=== PATIENT | female | born 1950 | race Caucasian/White ===

== ENCOUNTER 2016-09-09 00:33 | Observation (INO) | payer MEDICARE ==
[2016-09-09] MEDS ORDERED: Zofran 4 MG/2 ML VIAL IV ONE (00:58)
[2016-09-09] MEDS ORDERED: MORPHINE SULFATE 4 MG INJ IV ONE (00:58)
[2016-09-09] MEDS ORDERED: Sodium Chloride 0.9% 1000 ML 1,000 ML IV STA (00:58)
--- NOTE | 2016-09-09 01:04 | ERPHSYRPT ---
- History of Present Illness Time Seen by Provider: 09/09/16 01:00 Historian: patient Exam Limitations: no limitations Patient Subjective Stated Complaint: PT STS WAS JUST DISCHARGED HOME SATURDAY NIGHT, STS HERE FOR ABD PAIN TONIGHT THAT HAS BEEN ONGOING FOR WEEKS. STS THAT IT GETS EXCRUCIATING AT TIMES, RATES PAIN 7/10. DENIES VOMITING. STS NORMAL BM X 4 09/08/16. PT STS PAIN IS IN LOWER ABD. Triage Nursing Assessment: PT ALERT, ORIENTED, ANSWERS ALL QUESTIONS APPROPRIATELY. SKIN P/W/D, RESPS NON-LABORED. LUNGS CTA BILAT NON-LABORED, SPO2 95% ROOM AIR. PT ABD SOFT, TENDER LOWER QUADRANTS BILAT. + BOWEL SOUNDS NOTED ALL QUADRANTS. PITTING EDEMA NOTED TO BLE. Physician History: This is a 65-year-old white female with history of diabetes, coronary artery disease, asthma, hyperlipidemia, ulcers, GERD. Patient arrives with complaint of lower abdominal pain and nausea symptoms which she states has been going on for several months. Patient apparently was seen and treated for the same released one week ago today. She states that she is having pain in the lower suprapubic region and radiates up her abdomen. She has nausea no vomiting no melena no hematochezia no urinary symptoms. Patient does state that she was released a week ago with pain medication but she has taken it all. Past medical history includes migraines, cataracts, diabetes, asthma, coronary artery disease, hyperlipidemia, myocardial infarction, GERD, ulcers, arthritis, fibromyalgia, depression Past surgical history includes cardiac catheter, cardiac stents, appendectomy, hysterectomy, joint replacement, Timing/Duration: other (pain chronic for several weeks worse today) Quality: aching, cramping Abdominal Pain Onset Location: suprapubic Pain Radiation: other (radiates up entire abdomen) Severity of Pain-Max: moderate Severity of Pain-Current: moderate Modifying Factors: Improves With: nothing Associated Symptoms: nausea, No back, No chest pain, No diaphoresis, No diarrhea , No fever/chills, No fatigue, No headache, No heartburn, No loss of appetite, No neck pain, No rash, No shortness of breath, No syncope Previous symptoms: same symptoms as today, recent hospitalization Allergies/Adverse Reactions: aspirin Allergy (Verified 08/26/16 18:00) Home Medications: Ranitidine HCl [Zantac] 150 mg PO BID 03/28/12 [History] Alprazolam [Xanax] 1 mg PO QIDPRN PRN 05/19/12 [History] Ibuprofen [Advil] 200 mg PO Q6-8HPRN PRN 09/30/12 [History] Lisinopril 20 mg PO DAILY 09/30/12 [History] Magnesium Oxide 400 mg [Mag-Ox 400] 400 mg PO DAILY 09/30/12 [History] Furosemide 20 mg [Lasix 20 mg] 20 mg PO DAILY 02/08/16 [History] Potassium Chloride 20 Meq Tab [Potassium Chloride 20 MEQ TABLET] 20 meq PO DAILY 02/08/16 [History] Diphenoxylate HCl/Atropine [Lomotil 2.5-0.025 mg Tablet] 1 each PO UD 08/26/16 [ History] Esomeprazole Magnesium [Nexium] 40 mg PO DAILY 08/26/16 [History] Meclizine HCl 25 mg [Antivert 25 mg] 25 mg PO Q8H PRN PRN 08/26/16 [ History] Multivitamin W-Minerals/Lutein [Centrum Silver Tablet] 1 each PO DAILY 08/26/16 [History] Sertraline HCl 100 mg [Zoloft 100 MG] 100 mg PO DAILY 08/26/16 [History] Hx Tetanus, Diphtheria Vaccination/Date Given: Yes Hx Influenza Vaccination/Date Given: Yes Hx Pneumococcal Vaccination/Date Given: No - Review of Systems Constitutional: No Fever, No Chills Eyes: No Symptoms Ears, Nose, & Throat: No Symptoms Respiratory: No Cough, No Dyspnea Cardiac: No Chest Pain, No Edema, No Syncope Abdominal/Gastrointestinal: Abdominal Pain, Nausea, No Vomiting, No Diarrhea, No Constipation, No Hematemesis, No Hematochezia, No Melena, No Dysphagia, No Appetite Changes Genitourinary Symptoms: No Dysuria Musculoskeletal: No Back Pain, No Neck Pain Skin: No Rash Neurological: No Dizziness, No Focal Weakness, No Sensory Changes Psychological: No Symptoms Endocrine: No Symptoms All Other Systems: Reviewed and Negative - Past Medical History Pertinent Past Medical History: Yes Neurological History: Migraines ENT History: Cataracts Cardiac History: Coronary Artery Disease, High Cholesterol, Myocardial Infarction (MS) Respiratory History: Asthma Endocrine Medical History: Diabetes Type II Musculoskeletal History: Arthritis, Fibromyalgia GI Medical History: GERD, Ulcer History: No Pertinent History Psycho-Social History: Anxiety, Depression Female Reproductive Disorders: No Pertinent History - Past Surgical History Past Surgical History: Yes Neuro Surgical History: No Pertinent History Cardiac: Cardiac Catheterization, Cardiac Stent Respiratory: No Pertinent History Gastrointestinal: Appendectomy Genitourinary: No Pertinent History Musculoskeletal: Joint Replacement Female Surgical History: Hysterectomy Other Surgical History: states heart attack in 2011,states two stents placed. - Social History Smoking Status: Former smoker How long have you smoked: 44 Exposure to second hand smoke: Yes Drug Use: none Patient Lives Alone: Yes - Female History Hx Now: No - Nursing Vital Signs Nursing Vital Signs: Initial Vital Signs Temperature 98.2 F Temperature Source Oral Pulse Rate 80 Respiratory Rate 16 Blood Pressure 130/86 Pain Intensity 5 - Physical Exam General Appearance: other (well-developed obese white femaledoes not appear to be in acute distress) Eye Exam: PERRL/EOMI, eyes nml inspection Ears, Nose, Throat Exam: normal ENT inspection, pharynx normal, moist mucous membranes Neck Exam: normal inspection, non-tender, supple, full range of motion Respiratory Exam: normal breath sounds, lungs clear, No respiratory distress Cardiovascular Exam: regular rate/rhythm, normal heart sounds Gastrointestinal/Abdomen Exam: soft, normal bowel sounds, tenderness ( suprapubic tenderness), No distention, No mass, No guarding, No ecchymosis, No pulsatile mass, No rebound, No hernia, No hepatomegaly, No organomegaly Back Exam: normal inspection, normal range of motion, No CVA tenderness, No vertebral tenderness Extremity Exam: normal inspection, normal range of motion, pelvis stable Neurologic Exam: alert, oriented x 3, cooperative, normal mood/affect, nml cerebellar function, sensation nml, No motor deficits Skin Exam: normal color, warm, dry SpO2 Interpretation: normal (95%) SpO2: 95 Oxygen Delivery: Room Air - Course Nursing assessment & vital signs reviewed: Yes EKG Interpreted by Me: RATE (82 bpm), Sinus Rhythm, Q-wave (Q waves inferior leads), Other (EKG, sinus rhythm, 82 bpm, axisSi/QIII pattern, Q waves inferior leads, no acute ST or T wave changes, no change as compared to October 20, 2012 ) Ordered Tests: Active Orders 24 hr Category Date Time Status Accucheck STAT Care 09/09/16 00:59 Active EKG-ER Only STAT Care 09/09/16 01:11 Active IV Insertion STAT Care 09/09/16 00:58 Active AMYLASE Stat Lab 09/09/16 01:08 Completed CBC W DIFF Stat Lab 09/09/16 01:08 Completed CMP Stat Lab 09/09/16 01:08 Completed LIPASE Stat Lab 09/09/16 01:08 Completed Lactic Acid Urgent Lab 09/09/16 01:10 Completed TROPONIN Stat Lab 09/09/16 01:14 Completed UA W/ MICROSCOPIC Stat Lab 09/09/16 01:50 Completed Medication Summary Discontinued Medications Generic Name Dose Route Start Last Admin Trade Name Freq PRN Reason Stop Dose Admin Sodium Chloride 1,000 mls @ 999 mls/hr 09/09/16 00:58 09/09/16 01:40 Sodium Chloride 0.9% 1000 Ml IV 09/09/16 01:58 999 mls/hr .Q1H1M STA Administration Sodium Chloride Confirm 09/09/16 01:17 Sodium Chloride 0.9% 1000 Ml Administered 09/09/16 01:18 Dose 1,000 mls @ ud .ROUTE .STK-MED ONE Morphine Sulfate 4 mg 09/09/16 00:58 09/09/16 01:40 Morphine Sulfate 4 Mg Inj IV 09/09/16 00:59 4 mg STAT ONE Administration Morphine Sulfate Confirm 09/09/16 01:17 Morphine Sulfate 4 Mg Inj Administered 09/09/16 01:18 Dose 4 mg .ROUTE .STK-MED ONE Ondansetron HCl 4 mg 09/09/16 00:58 09/09/16 01:40 Zofran 4 Mg/2 Ml Vial IV 09/09/16 00:59 4 mg STAT ONE Administration Ondansetron HCl Confirm 09/09/16 01:16 Zofran 4 Mg/2 Ml Vial Administered 09/09/16 01:17 Dose 4 mg .ROUTE .STK-MED ONE Lab/Rad Data: Laboratory Result Diagrams 09/09/16 01:08 09/09/16 01:08 Laboratory Results 09/09/16 09/09/16 09/09/16 Range/Units 01:50 01:14 01:10 WBC (4.0-10.5) K/mm3 RBC (4.1-5.4) M/mm3 Hgb (12.0-16.0) gm/dl Hct (35-47) % MCV (78-100) fl MCH (26-32) pg MCHC (32-36) g/dl RDW (11.5-14.0) % Plt Count (150-450) K/mm3 MPV (6-9.5) fl Gran % (36.0-66.0) % Lymphocytes % (24.0-44.0) % Monocytes % (0.0-12.0) % Eosinophils % (0.00-5.0) % Basophils % (0.0-0.4) % Basophils # (0-0.4) Sodium (136-145) mEq/L Potassium (3.5-5.1) mEq/L Chloride (98-107) mEq/L Carbon Dioxide (21-32) mEq/L Anion Gap (5-15) MEQ/L BUN (9-20) mg/dL Creatinine (0.55-1.30) mg/dl Estimated GFR ML/MIN Glucose (70-110) MG/DL Lactic Acid 1.5 (0.4-2.0) Calcium (8.5-10.1) mg/dL Total Bilirubin (0.2-1.0) mg/dL AST (15-37) U/L ALT (12-78) U/L Alkaline Phosphatase (46-116) U/L Troponin I < 0.017 (0.000-0.056) ng/ml Serum Total Protein (6.4-8.2) gm/dL Albumin (3.4-5.0) g/dL Amylase (25-115) U/L Lipase (73-393) U/L Ur Collection Type CLEAN CATCH Urine Color YELLOW (YELLOW) Urine Appearance CLEAR (CLEAR) Urine pH 8.5 (5-6) Ur Specific [place] 1.020 (1.005-1.025) Urine Protein NEGATIVE (Negative) Urine Glucose (UA) NEGATIVE (NEGATIVE) mg/dL Urine Ketones NEGATIVE (NEGATIVE) Urine Nitrite NEGATIVE (NEGATIVE) Urine Bilirubin NEGATIVE (NEGATIVE) Urine Urobilinogen 0.2 (0-1) mg/dL Urine WBC (Auto) SMALL (NEGATIVE) Urine RBC (Auto) NEGATIVE (0-5) Marquez/ul Urine Microscopic RBC 2-5 (0-2) /HPF Urine Microscopic WBC 2-5 (0-5) /HPF Ur Epithelial Cells MODERATE (FEW) /HPF Urine Bacteria MODERATE (NEGATIVE) /HPF Specimen Received 09/09/16 0150 09/09/16 09/09/16 Range/Units 01:08 01:08 WBC 11.7 H (4.0-10.5) K/mm3 RBC 4.35 (4.1-5.4) M/mm3 Hgb 9.9 L (12.0-16.0) gm/dl Hct 33.8 L (35-47) % MCV 77.7 L (78-100) fl MCH 22.7 L (26-32) pg MCHC 29.3 L (32-36) g/dl RDW 20.9 H (11.5-14.0) % Plt Count 215 (150-450) K/mm3 MPV 11.8 H (6-9.5) fl Gran % 70.5 H (36.0-66.0) % Lymphocytes % 17.6 L (24.0-44.0) % Monocytes % 8.3 (0.0-12.0) % Eosinophils % 3.3 (0.00-5.0) % Basophils % 0.3 (0.0-0.4) % Basophils # 0.04 (0-0.4) Sodium 143 (136-145) mEq/L Potassium 3.8 (3.5-5.1) mEq/L Chloride 108 H (98-107) mEq/L Carbon Dioxide 31.5 (21-32) mEq/L Anion Gap 7.7 (5-15) MEQ/L BUN 7 L (9-20) mg/dL Creatinine 0.77 (0.55-1.30) mg/dl Estimated GFR > 60 ML/MIN Glucose 98 (70-110) MG/DL Lactic Acid (0.4-2.0) Calcium 8.2 L (8.5-10.1) mg/dL Total Bilirubin 0.2 (0.2-1.0) mg/dL AST 14 L (15-37) U/L ALT 13 (12-78) U/L Alkaline Phosphatase 111 (46-116) U/L Troponin I (0.000-0.056) ng/ml Serum Total Protein 6.4 (6.4-8.2) gm/dL Albumin 3.4 (3.4-5.0) g/dL Amylase 55 (25-115) U/L Lipase 133 (73-393) U/L Ur Collection Type Urine Color (YELLOW) Urine Appearance (CLEAR) Urine pH (5-6) Ur Specific [place] (1.005-1.025) Urine Protein (Negative) Urine Glucose (UA) (NEGATIVE) mg/dL Urine Ketones (NEGATIVE) Urine Nitrite (NEGATIVE) Urine Bilirubin (NEGATIVE) Urine Urobilinogen (0-1) mg/dL Urine WBC (Auto) (NEGATIVE) Urine RBC (Auto) (0-5) Marquez/ul Urine Microscopic RBC (0-2) /HPF Urine Microscopic WBC (0-5) /HPF Ur Epithelial Cells (FEW) /HPF Urine Bacteria (NEGATIVE) /HPF Specimen Received - Progress Progress: improved Progress Note: 09/09/16 02:17 This is a 65-year-old white female with history of diabetes coronary artery disease hyperlipidemia GERD and ulcer she arrives with complaints of continuing abdominal pain which has been going on for several weeks. Patient was admitted secondary to this she had a CT of her abdomen which showed a abnormally distended gallbladder without gallstones mild biliary tree prominence and tiny perihepatic fluid with a rule out cholecystitis being questioned there was also some small all fluid distended loops with synchronous fluid leveling favoring ileus. This was done on August 30, 2016. Patient states she continues to have pain in her abdomen she states she is nauseous she has no vomiting no diarrhea. Patient's white count is 11.7 hemoglobin 9.99 hematocrit 33.8 chemistry essentially normal amylase and lipase are normal EKG there are some old Q waves mother does not appear to be acute changes on her EKG troponin was within normal limits at less than 0.017 urine 2-5 white cells to 5 red cells negative nitrites. Patient with of tenderness on examination in the suprapubic region bowel sounds are positive. I have given patient morphine 4 mg IV and Zofran 4 mg IV patient now is somnolent and sleeps however if she is awoken she continues to complain that her abdomen hurts in the lower suprapubic region. I have discussed case with Dr. Carrillo will place patient on observation diagnosis abdominal pain will provide IV fluids and morphine with Zofran. - Departure Time of Disposition: 02:21 Departure Disposition: Observation Clinical Impression: Nausea Abdominal pain Qualifiers: Abdominal location: unspecified location Qualified Code(s): R10.9 - Unspecified abdominal pain Condition: Fair Critical Care Time: No
[2016-09-09 01:11] LABS: BASOPHIL % 0.3 % (0.0-0.4); Eosinophil % 3.3 % (0.00-5.0); Granulocytes % 70.5 % (36.0-66.0); Lymphocytes % 17.6 % (24.0-44.0); Mean Cell Volume 77.7 fl (78-100); Mean Platelet Volume 11.8 fl (6-9.5); Monocytes % 8.3 % (0.0-12.0); Platelet Count 215 K/mm3 (150-450); Red Blood Count 4.35 M/mm3 (4.1-5.4); Red Cell Distribution Width 20.9 % (11.5-14.0); White Blood Count 11.7 K/mm3 (4.0-10.5)
[2016-09-09 01:16] LABS: Mean Corpuscular Hemoglobin 22.7 pg (26-32)
[2016-09-09] MEDS ORDERED: Zofran 4 MG/2 ML VIAL ONE (01:16)
[2016-09-09] MEDS ORDERED: Sodium Chloride 0.9% 1000 ML 1,000 ML ONE (01:17)
[2016-09-09] MEDS ORDERED: MORPHINE SULFATE 4 MG INJ ONE (01:17)
[2016-09-09 01:42] LABS: ALBUMIN 3.4 g/dL (3.4-5.0); ALKALINE PHOSPHATASE 111 U/L (46-116); ANION GAP 7.7 MEQ/L (5-15); BILIRUBIN,TOTAL 0.2 mg/dL (0.2-1.0); BLOOD UREA NITROGEN 7 mg/dL (9-20); CHLORIDE 108 mEq/L (98-107); Carbon Dioxide 31.5 mEq/L (21-32); Glucose 98 MG/DL (70-110); LIPASE 133 U/L (73-393); Potassium 3.8 mEq/L (3.5-5.1); SGOT/AST 14 U/L (15-37); SGPT/ALT 13 U/L (12-78); SODIUM 143 mEq/L (136-145); Total Protein 6.4 gm/dL (6.4-8.2)
[2016-09-09 02:02] LABS: COMPLETE URINE MICROSCOPIC? YES; Collection Type CLEAN CATCH; Ph 8.5 (5-6)
[2016-09-09 02:03] LABS: Bacteria MODERATE /HPF (NEGATIVE); Epithelial Cells MODERATE /HPF (FEW)
[2016-09-09] MEDS ORDERED: MORPHINE SULFATE 4 MG INJ IV PRN (02:51)
[2016-09-09] MEDS ORDERED: NovoLOG Insulin SQ PRN (02:51)
[2016-09-09] MEDS ORDERED: Zofran 4 MG/2 ML VIAL IV PRN (02:51)
[2016-09-09] MEDS: Sodium Chloride 0.9% 1000 ML 1,000 ML IV SCH ×2 (04:32→14:06)
[2016-09-09 06:34] LABS: BASOPHIL % 0.4 % (0.0-0.4); Eosinophil % 4.6 % (0.00-5.0); Granulocytes % 61.4 % (36.0-66.0); Mean Cell Volume 78.5 fl (78-100); Mean Platelet Volume 11.6 fl (6-9.5); Monocytes % 8.6 % (0.0-12.0); Platelet Count 180 K/mm3 (150-450); Red Blood Count 3.95 M/mm3 (4.1-5.4); Red Cell Distribution Width 20.9 % (11.5-14.0); White Blood Count 9.5 K/mm3 (4.0-10.5)
[2016-09-09 06:38] LABS: Mean Corpuscular Hemoglobin 22.7 pg (26-32)
[2016-09-09 06:58] LABS: ALBUMIN 2.7 g/dL (3.4-5.0); ALKALINE PHOSPHATASE 90 U/L (46-116); ANION GAP 10.4 MEQ/L (5-15); BILIRUBIN,TOTAL 0.1 mg/dL (0.2-1.0); BLOOD UREA NITROGEN 5 mg/dL (9-20); CHLORIDE 112 mEq/L (98-107); Carbon Dioxide 28.5 mEq/L (21-32); Glucose 127 MG/DL (70-110); Potassium 3.5 mEq/L (3.5-5.1); SGOT/AST 10 U/L (15-37); SGPT/ALT 10 U/L (12-78); SODIUM 147 mEq/L (136-145); Total Protein 5.6 gm/dL (6.4-8.2)
[2016-09-09] MEDS ORDERED: ANTIVERT 25 MG PO PRN (11:08)
[2016-09-09] MEDS ORDERED: Lomotil PO PRN (11:15)
[2016-09-09] MEDS: Norco 10/325 MG Tablet PO PRN (13:07)
[2016-09-09] MEDS: ZOLOFT 50 MG TABLET PO SCH (13:07)
[2016-09-09] MEDS: Pepcid 20 MG PO SCH ×2 (13:07→22:17)
[2016-09-09] MEDS: LASIX 20 MG PO SCH (13:08)
[2016-09-09] MEDS: MAG-OX 400 PO SCH (13:08)
[2016-09-09] MEDS: Klor Con 10 MEQ PO SCH (13:08)
[2016-09-09] MEDS: THERAGRAN MULTIVITAMIN PO SCH (13:08)
[2016-09-09] MEDS: Zestril 20 MG PO SCH (13:08)
[2016-09-09] MEDS: Protonix 40MG Tablet PO SCH (13:08)
[2016-09-09] MEDS: NORVASC 5 MG PO SCH (13:08)
[2016-09-09] MEDS ORDERED: NON-FORMULARY ITEM (Ranitidine Hcl [Zantac] 150 MG) PO SCH (22:00)
[2016-09-09] MEDS: MORPHINE SULFATE 4 MG INJ IV PRN (22:18)
[2016-09-10] MEDS: Sodium Chloride 0.9% 1000 ML 1,000 ML IV SCH ×2 (00:41→10:15)
[2016-09-10] MEDS: MORPHINE SULFATE 4 MG INJ IV PRN ×2 (02:19→06:31)
--- NOTE | 2016-09-10 07:51 | PCM.NOTE ---
Date and Time: 09/10/16 0746 Subjective Assessment: Pt feeling hungry this morning. Abd pain is 4/10 but she had morphine 1.5 hrs ago. C/o epigastric and lower abdominal pain. Objective Exam General Appearance: no apparent distress Neurologic Exam: alert, cooperative Skin Exam: normal color, warm, dry Respiratory Exam: normal breath sounds, lungs clear, No crackles/rales, No rhonchi, No wheezing Cardiovascular Exam: regular rate/rhythm, normal heart sounds Gastrointestinal/Abdomen Exam: soft, tenderness (RUQ and epigastrum ttp), No guarding, No rebound Extremity Exam: swelling (1+ LE edema bilat) OBJECTIVE DATA Vital Signs: Vital Signs - 24 hr Temp Pulse Resp BP Pulse Ox 09/10/16 07:04 97.8 F 79 20 153/65 95 09/10/16 04:00 98.4 F 84 21 143/72 94 L 09/10/16 00:00 98.5 F 77 20 126/69 96 09/09/16 20:00 98.1 F 73 20 119/66 97 09/09/16 16:12 98.1 F 74 18 128/63 95 09/09/16 11:14 97.9 F 76 20 128/66 96 Pain Assessment - Last Documented Pain Intensity 8 Pain Scale Used 0-10 Pain Scale Intake and Output: Intake & Output 09/07/16 09/08/16 09/09/16 09/10/16 11:59 11:59 11:59 11:59 Intake Total 450 4843 Output Total 700 4550 Balance -250 293 Weight 113.171 kg Lab Results: Accuchecks Date 09/09/16 Date 09/09/16 Date 09/09/16 Time 22:00 Time 16:30 Time 11:30 Accucheck Value: 95 Accucheck Value: 142 Accucheck Value: 171 Lab Results-Last 24 Hours 09/09/16 Range/Units 05:40 Hemoglobin A1c 6.0 (4.5-6.2) Multi-Disciplinary Progress Notes: Multi-Disciplinary Progress Notes 09/09/16 08:27 Case Management Note by Paty Melara DISCHARGE PLAN REVIEWED. REPORTS THAT SHE PROVIDES SELF CARE, AND IS INDEPENDENT WITH ALL ADL'S. DECLINED NEED FOR C SERVICES ON DISCHARGE AT VISIT IN AUGUST 2016, ONE WEEK AGO. WILL REVISIT THAT ON SATURDAY. PLANS TO RETURN HOME TO PRE EPISODIC LEVEL OF [place]. 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 PT DOES HAVE A WALKER AT HOME. WILL CONTINUE TO MONITOR FOR ALL D/C NEEDS. Initialized on 09/09/16 08:27 - END OF NOTE Assessment/Plan (1) Abdominal pain Current Visit: Yes Status: Acute Qualifiers: Abdominal location: unspecified location Qualified Code(s): R10.9 - Unspecified abdominal pain Assessment & Plan: Surgery has been consulted, thank you. HAs had distended gallbladder during most recent hospital stay; no cholelithiasis. Will keep NPO for now pending surgery consult. Code(s): R10.9 - UNSPECIFIED ABDOMINAL PAIN (2) Edema Current Visit: Yes Status: Acute Qualifiers: Edema type: localized Qualified Code(s): R60.0 - Localized edema Assessment & Plan: LE bilat - check BNP in a.m. Code(s): R60.9 - EDEMA, UNSPECIFIED (3) DVT prophylaxis Current Visit: Yes Status: Acute Assessment & Plan: Will start lovenox 40mg SQ daily if pt is not going to surgery today. Await surgery consult. Code(s): [id number] -
[2016-09-10] MEDS ORDERED: MORPHINE SULFATE 2 MG INJ IV PRN (07:52)
[2016-09-10] MEDS ORDERED: Ativan 2 MG/1 ML VIAL IV PRN (07:58)
--- NOTE | 2016-09-10 07:59 | HP ---
CHIEF COMPLAINT: Abdominal pain. HISTORY OF PRESENT ILLNESS: The patient is a 65 year-old white female patient who had been hospitalized and released from our facility approximately five days ago. She represented to the emergency room complaining of excruciating pain in her right upper quadrant. She reports that she had several bowel movements that were normal otherwise yesterday. The patient has a history of diabetes mellitus, coronary artery disease, asthma, hyperlipidemia, gastroesophageal reflux disease, depression, fibromyalgia. MEDICATIONS: Her home medication list includes Zantac 150 mg b.i.d., Alprazolam 1 mg four times a day PRN anxiety, Advil 200 mg every six to eight hours PRN for pain, lisinopril 20 mg a day, magnesium tablets, Furosemide 20 mg daily, potassium 20 mEq daily, Lomotil, Nexium 40 mg a day, Antivert 25 mg every 8 hours PRN, Zoloft 100 mg b.i.d. ALLERGIES: ASPIRIN. PHYSICAL EXAMINATION: Revealed a disheveled appearing white female patient who is somewhat lethargic and with garbled speech although she does awaken and answer questions but has difficulty remembering what all studies that she has had done, even having trouble remembering her physician's name. The patient's vital signs most recently showed a temperature 97.7F, pulse 80, respiratory rate 20, blood pressure 136/74. O2 saturation 96%. HEENT: Normocephalic, atraumatic. Pupils equal round reactive to light. Extraocular movements intact. Oropharynx is pink and moist. NECK: Supple without lymphadenopathy, thyromegaly or JVD. CHEST: Clear to auscultation with good air movement bilaterally. HEART: Regular rate and rhythm without murmurs, rubs or gallops. ABDOMEN: Minimally tender. No guarding or rebound was present. Bowel sounds are normal. EXTREMITIES: Without cyanosis, clubbing or edema. NEUROLOGIC: The patient is alert and oriented x3. LAB DATA AND TESTS: Apparently the patient had a HIDA scan in the past which showed ejection fraction of 8%. There was some discussion about taking the patient to surgery but due to her code status they decided not to do that on her most recent hospitalization. The patient's lab studies otherwise here show glucose 98, BUN 7, creatinine 0.77. Electrolytes were normal. Liver enzymes were normal. Amylase and lipase were normal. Troponins less than 0/017. Lactic acid 1.5. White blood cell count slightly elevated at 11,700, hemoglobin 9.9, PLT count 215,000 minimum left shift was noted. UA specific gravity 1.020, white blood cells 2 to 5, red blood cells 2 to 5 and negative nitrite. The patient's CT scan showed abnormally distended gallbladder without gallstones now with biliary tree prominence and tiny parahepatic fluid; rule out acalculus cholecystitis. ASSESSMENT: A patient with gallbladder disease admitted to the hospital for IV fluids and the patient had surgical consultation in the past but apparently refused to do any surgery given her code status. The patient has been admitted to the hospital for IV fluids and pain medications in the meantime. She will be continued on her home medications except for increasing the dosage of Alprazolam, reducing the dosage of morphine as the patient's lethargy is likely due to the morphine that she had just received. We will give [place] for pain as on current chart list.
[2016-09-10] MEDS: ZOLOFT 50 MG TABLET PO SCH (08:15)
[2016-09-10 08:16] LABS: BASOPHIL % 0.5 % (0.0-0.4); Eosinophil % 3.2 % (0.00-5.0); Lymphocytes % 23.2 % (24.0-44.0); Mean Cell Volume 78.9 fl (78-100); Mean Corpuscular Hemoglobin 23.1 pg (26-32); Mean Platelet Volume 10.7 fl (6-9.5); Monocytes % 8.1 % (0.0-12.0); Platelet Count 176 K/mm3 (150-450); Red Blood Count 3.98 M/mm3 (4.1-5.4); White Blood Count 8.7 K/mm3 (4.0-10.5)
[2016-09-10] MEDS: NORVASC 5 MG PO SCH (08:16)
[2016-09-10] MEDS: LASIX 20 MG PO SCH (08:16)
[2016-09-10] MEDS: Pepcid 20 MG PO SCH (08:16)
[2016-09-10] MEDS: Zestril 20 MG PO SCH (08:16)
[2016-09-10] MEDS: Klor Con 10 MEQ PO SCH (08:16)
[2016-09-10] MEDS: THERAGRAN MULTIVITAMIN PO SCH (08:17)
[2016-09-10] MEDS: Protonix 40MG Tablet PO SCH (08:17)
[2016-09-10] MEDS: MAG-OX 400 PO SCH (08:17)
[2016-09-10] MEDS ORDERED: NON-FORMULARY ITEM (Esomeprazole Magnesium [Nexium] 40 MG) PO SCH (10:00)
[2016-09-10] MEDS ORDERED: NON-FORMULARY ITEM (Sertraline Hcl 100 Mg [Zoloft 100 Mg] 100 MG) PO SCH (10:00)
[2016-09-10] MEDS ORDERED: NON-FORMULARY ITEM (Multivitamin W-Minerals/Lutein [Centrum Silver Tablet] 1 EACH) PO SCH (10:00)
[2016-09-10] MEDS ORDERED: NON-FORMULARY ITEM (Potassium Chloride 20 Meq Tab [Potassium Chloride 20 Meq Tablet] 20 ME PO SCH (10:00)
[2016-09-10] MEDS ORDERED: Nicoderm CQ 21 MG TOP SCH (10:15)
[2016-09-10 11:20] LABS: ALBUMIN 2.9 g/dL (3.4-5.0); ALKALINE PHOSPHATASE 74 U/L (46-116); ANION GAP 10.7 MEQ/L (5-15); BILIRUBIN,TOTAL 0.3 mg/dL (0.2-1.0); BLOOD UREA NITROGEN 2 mg/dL (9-20); CHLORIDE 108 mEq/L (98-107); Carbon Dioxide 27.9 mEq/L (21-32); Glucose 97 MG/DL (70-110); Potassium 3.5 mEq/L (3.5-5.1); SGOT/AST 14 U/L (15-37); SGPT/ALT 14 U/L (12-78); SODIUM 143 mEq/L (136-145)
[2016-09-10] MEDS: Norco 10/325 MG Tablet PO PRN (12:15)
--- NOTE | 2016-09-10 12:21 | CONS ---
CONSULT DATE: 09/10/2015 HISTORY: This patient is seen for Dr. Kuo who is production tester for our group. He and his daughter, Shirley Shiela, also saw the patient when she was a week or so ago. On 09/10/2016, apparently she came in with some excruciating right upper quadrant pain although this morning is not hardly bothering her at all, according to the patient. PAST MEDICAL HISTORY: Significant cardiac history. She said she basically here and was sent to [facility] and had a couple stents placed in the past. Otherwise she is a rather poor historian. Diabetes, asthma, obesity, history of myocardial infarction, coronary artery disease, reflux, ulcer, arthritis, depression, hyperlipidemia, and history of migraines and cataracts. She has some chronic aches and pains. PAST SURGICAL HISTORY: Cardiac stents. Appendectomy. Hysterectomy. Joint replacement in the past. MEDICATIONS: At home include Zantac, Xanax, Advil, lisinopril, magnesium oxide, Lasix, potassium chloride, Lomotil, Nexium, Antivert, Centrum Silver, Zoloft. ALLERGIES: SENSITIVE TO ASPIRIN. FAMILY HISTORY: Negative in regards to this specific problem. SOCIAL HISTORY: Former smoker. No alcohol abuse currently. REVIEW OF SYSTEMS: Ten systems reviewed negative or noncontributory as noted above and per admission assessment. Old history and physicals and consults on the chart. Pertinent for significant cardiac issues, issues with code status that the patient would not change her status of No Code given her cardiac etiology it was felt that she was not a surgical candidate by Dr. Kuo when he saw her last when he signed off. Currently she is much more comfortable now than when she came in yesterday. She had a normal white blood cell count. Liver function tests were not elevated at this time. No chest pain or shortness of breath currently. PHYSICAL EXAMINATION: GENERAL: A chronically ill female. HEENT: Sclera nonicteric. NECK: No JVD. CHEST: Equal excursion, nonlabored breathing. CVS: Regular rate and rhythm. ABDOMEN: Obese, soft, some minimal tenderness right upper quadrant. No rebound. No guarding. No peritoneal signs currently. Much improved from yesterday. EXTREMITIES: No cyanosis. NEURO: Alert, moving extremities grossly symmetrically. IMPRESSION: History of some right sided abdominal pain. She apparently had ultrasound show no stones. She had a HIDA scan that was read by the radiologist here as normal HIDA scan although he gave an ejection fraction of -8%, not positive 8% but -8%, but either way he called it a normal HIDA scan at that time. She is more comfortable now. No emergent surgery necessary. Whether she truly does have some chronic cholecystitis or other etiology is unclear, either way will check with Dr. Kuo who did not think she was a surgical candidate in the past and see what his thoughts are now, whether he still thinks she is not a candidate for surgical intervention here, or whether she needs transfer to machine group leader for cardiac clearance and possibly consider repeating the HIDA scan elsewhere to see if indeed it is truly normal. If it is she might benefit from GI evaluation. At this point no emergent surgery necessary, will discuss with Dr. Kuo to see if he has any other thoughts as he felt she was not a surgical candidate in the past. If he feels that she needs cardiac clearance with machine group leader, repeat HIDA scan elsewhere will let the nursing staff know. Either way no emergent surgery necessary, continue medical management.
[2016-09-10 16:16] VITALS: BP 147/80; PULSE 86; O2SAT 97
== END 2016-09-10 16:30 | disposition home or self-care (01) ==
LOC: ED 00:33 → MED SURG 02:49
PROVIDERS: ADMIT Family Medicine; ATTEND Family Medicine
DX: K82.9 Disease of gallbladder, unspecified (principal); R60.0 Localized edema; E11.9 Type 2 diabetes mellitus without complications; I25.10 Atherosclerotic heart disease of native coronary artery without angina pectoris; J45.909 Unspecified asthma, uncomplicated; K21.9 Gastro-esophageal reflux disease without esophagitis; F41.8 Other specified anxiety disorders; M79.7 Fibromyalgia; Z79.899 Other long term (current) drug therapy
CPT/HCPCS: 36000; 36415; 80053; 81000; 82150; 82962; 83036; 83605; 83690; 84484; 85025; 93005; 93041; 93268; 96360; 96374; 96375; 99284; G0378; J2060; J2270; J2405